=== PATIENT | female | born 1990 ===

== ENCOUNTER 2018-08-15 01:40 | Emergency (ER) | payer SELFPAY ==
[2018-08-15 01:47] VITALS: RESP 18; O2SAT 99
--- NOTE | 2018-08-15 01:49 | ED PDOC ---
HPI: Psych/Substance Abuse Time Seen by Provider: 08/15/18 01:40 Chief Complaint (Provider): psych eval History Per: Patient, EMS Modifying Factor(s): Alcohol Additional Complaint(s): 27 y/o female brought in by EMS for psych evaluation. Patient crying; states tonight she broke up with her boyfriend and started having suicidal ideations which she has had in past causing hospitalizations. Denies plan. Patient denies homicidal ideations, hallucinations, acute physical complaints. Patient admits to drinking "a little" alcohol tonight. Past Medical History Reviewed: Historical Data, Nursing Documentation, Vital Signs - Medical History PMH: Anxiety, GERD - Surgical History Other surgeries: right ankle sx - Family History Family History: States: Unknown Family Hx - Home Medications Home Medications: Ambulatory Orders Medication Instructions Recorded Albuterol HFA [Ventolin HFA 90 1 puff IH ASDIR #1 unit 05/01/16 mcg/actuation (8 g)] Azithromycin [Zithromax] 250 mg PO DAILY #6 tab 05/01/16 Methylprednisolone [Medrol Dose 4 mg PO ASDIR #21 mg 05/01/16 Pack (21 tabs)] guaiFENesin/Codeine [Robitussin 5 ml PO ASDIR PRN #200 ml 05/01/16 w/Codeine] Famotidine [Pepcid] 20 mg PO Q12 #20 tab 08/01/16 Ondansetron [Zofran] 4 mg PO Q8H #10 tab 08/01/16 Oseltamivir Cap [Tamiflu] 75 mg PO BID #10 cap 08/01/16 - Allergies Allergies/Adverse Reactions: Allergies Allergy/AdvReac Type Severity Reaction Status Date / Time Penicillins Allergy URTICARIA Verified 08/15/18 01:47 Review of Systems ROS Statement: Except As Marked, All Systems Reviewed And Found Negative Psych: Positive for: Suicidal ideation Physical Exam - Reviewed Nursing Documentation Reviewed: Yes Vital Signs Reviewed: Yes - Physical Exam Appears: Positive for: Well, Non-toxic, No Acute Distress Head Exam: Positive for: ATRAUMATIC, NORMAL INSPECTION, NORMOCEPHALIC Skin: Positive for: Normal Color Eye Exam: Positive for: Normal appearance ENT: Positive for: Normal ENT Inspection Cardiovascular/Chest: Positive for: Regular Rate, Rhythm Respiratory: Positive for: Normal Breath Sounds Gastrointestinal/Abdominal: Positive for: Normal Exam Back: Positive for: Normal Inspection Extremity: Positive for: Normal ROM Neurologic/Psych: Positive for: Alert, Oriented (x3) - Laboratory Results Result Diagrams: 08/15/18 02:09 08/15/18 02:09 - Progress ED Course And Treament: -cbc -cmp -alcohol -urine drug screen -urinalysis -1:1 -crisis eval Patient evaluated by jig worker; does not meet criteria for admission at this time as per Dr. Fraga Patient educated on findings, advised outpatient follow up Return precautions given Disposition - Clinical Impression Clinical Impression: Polysubstance abuse, Depression - Patient ED Disposition Is Patient to be Admitted: No Counseled Patient/Family Regarding: Studies Performed, Diagnosis, Need For Followup - Disposition Disposition: Routine/Home Disposition Time: 04:00 Condition: IMPROVED Instructions: Depression, Polysubstance Abuse
[2018-08-15 02:32] LABS: BASO % 0.6 % (0.0-2.0); EOS # 0.4 K/uL (0.0-0.7); EOS % 4.6 % (0.0-4.0); HEMOGLOBIN 12.4 g/dL (12.0-16.0); LYMPH # 3.4 K/uL (1.0-4.3); LYMPH % 40.9 % (20.0-40.0); MEAN CELL VOLUME 91.2 fl (81.0-99.0); MEAN CORPUSCULAR HEMOGLOBIN 29.6 pg (27.0-31.0); MEAN CORPUSCULAR HGB CONC 32.5 g/dL (33.0-37.0); MONO # 0.4 K/uL (0.0-0.8); MONO % 4.7 % (0.0-10.0); NEUT # 4.1 K/uL (1.8-7.0); NEUT % 49.2 % (50.0-75.0); NRBC % 0.1 % (0.0-0.0); RBC 4.18 Mil/uL (3.80-5.20); RED CELL DISTRIBUTION WIDTH 13.6 % (11.5-14.5); WHITE BLOOD COUNT 8.4 K/uL (4.8-10.8)
[2018-08-15 02:40] LABS: ALB/GLOB RATIO 1.4 (1.0-2.1); ALBUMIN 4.5 g/dL (3.5-5.0); ALT/SGPT 22 U/L (9-52); AST/SGOT 20 U/L (14-36); BLOOD UREA NITROGEN 12 mg/dl (7-17); CALCIUM 8.8 mg/dL (8.4-10.2); GFR NON-AFRICAN AMERICAN > 60
[2018-08-15 03:01] LABS: SQUAMOUS EPITHIAL 1 /hpf (0-5); URINE BACTERIA RARE (<OCC); URINE BILIRUBIN NEGATIVE (NEGATIVE); URINE BLOOD NEGATIVE (NEGATIVE); URINE CLARITY SLIGHTY-CLOUDY (Clear); URINE COLOR STRAW (YELLOW); URINE GLUCOSE (UA) NEG (NEGATIVE); URINE LEUKOCYTE ESTERASE NEG Leu/uL (Negative); URINE PROTEIN NEGATIVE (NEGATIVE); URINE UROBILINOGEN 0.2-1.0 mg/dL (0.2-1.0)
[2018-08-15 03:30] LABS: BARBITURATES, UR NEGATIVE (NEGATIVE); BENZODIAZEPINES, UR POSITIVE (NEGATIVE); OPIATES, UR POSITIVE (NEGATIVE); PHENCYCLIDINE, UR NEGATIVE (NEGATIVE)
[2018-08-15 04:12] VITALS: BP 122/78; PULSE 88; TEMP 98.2
== END 2018-08-15 04:12 | disposition home or self-care (01) ==
LOC: H.ER 01:40
DX: F32.9 Major depressive disorder, single episode, unspecified (principal); F19.10 Other psychoactive substance abuse, uncomplicated; Z86.59 Personal history of other mental and behavioral disorders; Z00.8 Encounter for other general examination; Z88.0 Allergy status to penicillin
CPT/HCPCS: 80053; 81003; 81025; 85025; 99283; G0480